=== PATIENT | female | born 1975 | race Two or more races ===

== ENCOUNTER 2022-08-31 21:09 | Emergency (ER) | payer OTHER ==
[~2022-08-31] VITALS: Ht 170.2 cm; Wt 90.1 kg
[2022-08-31 21:17] VITALS: BP 149/91; PULSE 78; RESP 24; TEMP 98.2
[2022-08-31] MEDS ORDERED: ACETAMINOPHEN 500 MG TABLET PO ONE (21:45)
[2022-08-31] MEDS ORDERED: IBUPROFEN 600 MG TABLET PO ONE (21:45)
== END 2022-08-31 23:16 | disposition home or self-care (01) ==
LOC: EMS 21:11
DX: S43.004A Unspecified dislocation of right shoulder joint, initial encounter (principal); S93.402A Sprain of unspecified ligament of left ankle, initial encounter; Z98.890 Other specified postprocedural states; W01.0XXA Fall on same level from slipping, tripping and stumbling without subsequent striking against object, initial encounter; Y93.89 Activity, other specified; Y92.89 Other specified places as the place of occurrence of the external cause; Y99.8 Other external cause status
CPT/HCPCS: 23650; 99284; 73030-TC; 73610-TC; Z7502; Z7610